=== PATIENT | female | born 1960 | race Caucasian/White ===

== ENCOUNTER 2023-08-22 07:55 | Inpatient (IN) | payer BC, MEDICAID ==
[~2023-08-22] VITALS: Ht 162.6 cm; Wt 67.6 kg
[~2023-08-22 07:55] MED LIST: IBUP1POW13
[2023-08-22 08:38] LABS: Basophils # (auto) 0 10 ^3/uL (0-0.2); Basophils % (auto) 0.1 % (0.0-2.0); Eosinophils # (auto) 0 10 ^3/uL (0-0.8); Hematocrit 34.2 % (36.0-46.0); Hemoglobin 11.1 g/dL (12.2-16.2); Lymphocytes # (auto) 1.2 10 ^3/uL (0.4-5.4); Lymphocytes % (auto) 4.9 % (10.0-50.0); Mean Corpuscular Hemoglobin 28.7 pg (28.0-32.0); Mean Corpuscular Hgb Conc. 32.5 g/dL (32.0-36.0); Mean Corpuscular Volume 88.2 fL (80.0-100.0); Monocytes % (auto) 4.2 % (0.0-12.0); Neutrophils % (auto) 90.8 % (37.0-80.0); Red Blood Cells 3.87 10^6/uL (4.0-5.20); Red Cell Distribution Width 15.4 % (11.8-14.3); White Blood Cell 24.2 10^3/uL (4.4-10.8)
[2023-08-22 08:52] LABS: Chloride 98 mmol/L (98-107); Potassium 3.8 mmol/L (3.5-5.1); Sodium 131 mmol/L (136-145)
[2023-08-22 08:53] LABS: Anion Gap 10 (5-15); Calcium 8.5 mg/dL (8.5-10.1); Carbon Dioxide 23 mmol/L (20-30)
[2023-08-22 08:58] LABS: BUN/Creatinine Ratio 23.1 (10.0-20.0); Blood Urea Nitrogen 15 mg/dL (9-23); Glucose 155 mg/dL (74-106)
[2023-08-22] MEDS: methylPREDNISolone SOD SUCC 125 MG/2 ML VL IV ONE (09:03)
[2023-08-22] MEDS: SODIUM CHLORIDE 0.9% 1,000 ML IV ONE ×2 (09:03→10:36)
[2023-08-22 09:14] VITALS: PULSE 75; RESP 19; O2SAT 93
[2023-08-22] MEDS: AZITHROMYCIN 500MG/ 250ML 250 ML IV ONE (10:35)
[2023-08-22 10:48] LABS: COVID19 ANTIGEN SOFIA FIA NEGATIVE (NEGATIVE); Rapid Influenza A Negative (Negative); Rapid Influenza B Negative (Negative)
[2023-08-22] MEDS ORDERED: DEXTROSE (50%) 50ML SYRG IV PRN (11:00)
[2023-08-22] MEDS ORDERED: DOCUSATE SOD 100 MG CAP PO PRN (11:00)
[2023-08-22] MEDS ORDERED: ONDANSETRON HCL 4 MG/2 ML VIAL IV PRN (11:00)
[2023-08-22] MEDS: IOHEXOL 350 MG/ML 100ML IJ ONE (11:02)
[2023-08-22 11:42] LABS: Base Excess -2.1 mmol/L (-2.0-2.0)
[2023-08-22] MEDS: SODIUM CHLORIDE 0.9% 1,000 ML IV SCH (12:42)
[2023-08-22] MEDS: ACCU-CHEK COMFORT CURVE STRIP VI SCH (12:42)
[2023-08-22] MEDS: InsuLIN REG 1unit/0.01ml Soln (100units/ml) SC SCH (12:45)
[2023-08-22] MEDS: NOREPINEPHRINE 8 MG/250ML KIT 250 ML IV SCH (15:19)
[2023-08-22] MEDS: ACETAMINOPHEN 325 MG TAB PO ONE (17:31)
[2023-08-22 19:45] VITALS: PULSE 92; RESP 22; O2SAT 94
[2023-08-22] MEDS ORDERED: VANCOMYCIN PER PHARMACY 0 MG IV SCH (21:30)
[2023-08-22] MEDS: VANCOMYCIN 1GM/200ML 200 ML IV ONE (21:53)
[2023-08-23] MEDS: HYDROcodone-ACET 5/325MG TAB PO ONE (01:10)
[2023-08-23 05:31] LABS: Hemoglobin 10.8 g/dL (12.2-16.2); Mean Corpuscular Hemoglobin 28.9 pg (28.0-32.0); Mean Corpuscular Hgb Conc. 32.6 g/dL (32.0-36.0); Mean Corpuscular Volume 88.7 fL (80.0-100.0); Red Blood Cells 3.72 10^6/uL (4.0-5.20); Red Cell Distribution Width 15.4 % (11.8-14.3); White Blood Cell 21.7 10^3/uL (4.4-10.8)
[2023-08-23 05:34] LABS: Albumin 3.4 g/dL (3.2-4.8); Alkaline Phosphatase 104 U/L (46-116); Anion Gap 9 (5-15); BUN/Creatinine Ratio 43.2 (10.0-20.0); Blood Urea Nitrogen 19 mg/dL (9-23); Calcium 8.3 mg/dL (8.7-10.4); Carbon Dioxide 21 mmol/L (20-30); Chloride 107 mmol/L (98-107); Glucose 141 mg/dL (74-106); Potassium 3.4 mmol/L (3.5-5.1); Sodium 137 mmol/L (136-145)
[2023-08-23 05:35] LABS: Aspartate Aminotransferase 10 U/L (13-40)
[2023-08-23 05:36] LABS: Bilirubin, Total 0.2 mg/dL (0.2-1.0)
[2023-08-23 05:46] LABS: Basophils % (manual) 0 (0.0-2.0); Blast Cells 0; Eosinophils % (manual) 0 (0-7); Promyelocytes % 0; Reactive Lymphocytes 0
[2023-08-23 05:49] LABS: Alanine Aminotransferase < 9 U/L (7-40)
[2023-08-23 09:03] LABS: Band Neutrophils % (manual) 11; Lymphocytes % (manual) 7 (10.0-50.0); Metamyelocytes % 2; Monocytes % (manual) 4 (0-12); Myelocytes % 1; Platelet Estimate Adequate
[2023-08-23] MEDS: cefTRIAXone 1GM/50ML D5W 50 ML IV SCH (09:17)
[2023-08-23] MEDS ORDERED: VANCOMYCIN 750mg/150ml 150 ML IV SCH (10:00)
[2023-08-23] MEDS: AZITHROMYCIN 500MG/ 250ML 250 ML IV SCH (10:42)
[2023-08-23] MEDS: ENOXAPARIN SOD 40 MG/0.4 ML SYRINGE SC SCH (10:42)
[2023-08-23 11:08] VITALS: BP 122/76; PULSE 88; RESP 19; TEMP 97.8; O2SAT 95
[2023-08-23] MEDS ORDERED: EMPA1TAB PO (11:30)
[2023-08-23] MEDS ORDERED: SITA100T7 PO (11:30)
[2023-08-23] MEDS ORDERED: AMLO1TAB21 PO (11:30)
[2023-08-23] MEDS ORDERED: ATOR40TA52 PO (11:30)
[2023-08-23] MEDS ORDERED: LISI40TA16 PO (11:30)
[2023-08-23] MEDS ORDERED: METF-372 PO (11:30)
[2023-08-23] MEDS ORDERED: PROP1TAB59 PO (11:30)
[2023-08-23] MEDS ORDERED: METH2.5T PO (11:30)
[2023-08-23 17:00] VITALS: BP 144/74; PULSE 95; RESP 18; TEMP 98.4; O2SAT 93
[2023-08-23 20:00] VITALS: PULSE 101
[2023-08-23 21:32] VITALS: BP 153/87; PULSE 100; RESP 16; TEMP 98.2; O2SAT 93
[2023-08-23] MEDS: MORPHINE SULFATE INJ 2 MG/ml SYRG IV PRN (21:47)
[2023-08-24] VITALS (7 sets, daily range): BP systolic 115–145; BP diastolic 68–86; PULSE 90–116; RESP 16–20; TEMP 98.5–99; O2SAT 93–98
[2023-08-24 05:27] LABS: Basophils # (auto) 0 10 ^3/uL (0-0.2); Basophils % (auto) 0.1 % (0.0-2.0); Eosinophils # (auto) 0.1 10 ^3/uL (0-0.8); Eosinophils % (auto) 0.3 % (0.0-7.0); Hematocrit 31.1 % (36.0-46.0); Hemoglobin 10.3 g/dL (12.2-16.2); Lymphocytes # (auto) 1.5 10 ^3/uL (0.4-5.4); Lymphocytes % (auto) 9.2 % (10.0-50.0); Mean Corpuscular Hemoglobin 29.3 pg (28.0-32.0); Mean Corpuscular Hgb Conc. 33.3 g/dL (32.0-36.0); Mean Corpuscular Volume 87.9 fL (80.0-100.0); Monocytes # (auto) 1.4 10 ^3/uL (0-1.3); Monocytes % (auto) 8.3 % (0.0-12.0); Neutrophils # (auto) 13.8 10 ^3/uL (1.6-8.6); Neutrophils % (auto) 82.1 % (37.0-80.0); Nucleated Red Blood Cells % 0.2 %; Red Blood Cells 3.54 10^6/uL (4.0-5.20); Red Cell Distribution Width 15.6 % (11.8-14.3); White Blood Cell 16.8 10^3/uL (4.4-10.8)
[2023-08-24 05:43] LABS: Alanine Aminotransferase 13 U/L (7-40); Albumin 3.3 g/dL (3.2-4.8); Alkaline Phosphatase 89 U/L (46-116); Anion Gap 7 (5-15); Aspartate Aminotransferase 17 U/L (13-40); BUN/Creatinine Ratio 35.1 (10.0-20.0); Bilirubin, Total 0.3 mg/dL (0.2-1.0); Blood Urea Nitrogen 13 mg/dL (9-23); Calcium 8.4 mg/dL (8.5-10.1); Carbon Dioxide 24 mmol/L (20-30); Chloride 106 mmol/L (98-107); Glucose 121 mg/dL (74-106); Potassium 3.3 mmol/L (3.5-5.1); Sodium 137 mmol/L (136-145); Total Protein 5.5 g/dL (5.7-8.2)
[2023-08-24] MEDS: POTASSIUM EFFERVESENT TAB 25 MEQ PO ONE (09:40)
[2023-08-25 05:09] VITALS: BP 125/84; PULSE 104; RESP 18; TEMP 99.7; O2SAT 93
[2023-08-25 07:28] LABS: Alanine Aminotransferase 10 U/L (7-40); Albumin 3.3 g/dL (3.2-4.8); Alkaline Phosphatase 85 U/L (46-116); Anion Gap 6 (5-15); BUN/Creatinine Ratio 15.8 (10.0-20.0); Blood Urea Nitrogen 6 mg/dL (9-23); Calcium 8.6 mg/dL (8.5-10.1); Carbon Dioxide 28 mmol/L (20-30); Chloride 104 mmol/L (98-107); Glucose 147 mg/dL (74-106); Potassium 3.3 mmol/L (3.5-5.1); Sodium 138 mmol/L (136-145)
[2023-08-25 07:29] LABS: Aspartate Aminotransferase 14 U/L (13-40); Bilirubin, Total 0.4 mg/dL (0.2-1.0); Total Protein 5.7 g/dL (5.7-8.2)
[2023-08-25 07:34] LABS: Hematocrit 33.9 % (36.0-46.0); Mean Corpuscular Hemoglobin 28.5 pg (28.0-32.0); Mean Corpuscular Hgb Conc. 32.3 g/dL (32.0-36.0); Mean Corpuscular Volume 88.2 fL (80.0-100.0); Red Blood Cells 3.85 10^6/uL (4.0-5.20); Red Cell Distribution Width 15.9 % (11.8-14.3); White Blood Cell 13.1 10^3/uL (4.4-10.8)
[2023-08-25 07:35] LABS: Basophils % (manual) 0 (0.0-2.0); Blast Cells 0; Eosinophils % (manual) 0 (0-7); Metamyelocytes % 0; Myelocytes % 0; Promyelocytes % 0; Reactive Lymphocytes 0
[2023-08-25 08:00] VITALS: PULSE 103
[2023-08-25 08:24] LABS: Band Neutrophils % (manual) 2; Lymphocytes % (manual) 15 (10.0-50.0); Monocytes % (manual) 8 (0-12); Platelet Estimate Increased; RBC Morphology Normal
[2023-08-25] MEDS: POTASSIUM EFFERVESENT TAB 25 MEQ PO ONE (08:27)
[2023-08-25 09:12] VITALS: BP 143/71; PULSE 115; RESP 16; TEMP 98.2; O2SAT 93
[2023-08-25] MEDS ORDERED: AMOX500T86 PO (11:34)
[2023-08-25 12:37] VITALS: TEMP 36.8
== END 2023-08-25 13:11 | disposition home or self-care (01) | DRG 871 ==
LOC: ER 07:55 → TELE 10:57 → TELE-EAST 08-23 11:22
PROVIDERS: ADMIT Internal Medicine Pulmonary Disease; ATTEND Internal Medicine Pulmonary Disease
DX: A41.9 Sepsis, unspecified organism (principal); J18.9 Pneumonia, unspecified organism; J96.01 Acute respiratory failure with hypoxia; R65.21 Severe sepsis with septic shock; G93.1 Anoxic brain damage, not elsewhere classified; I10 Essential (primary) hypertension; Z20.822 Contact with and (suspected) exposure to COVID-19; E78.5 Hyperlipidemia, unspecified; F41.9 Anxiety disorder, unspecified; F32.A Depression, unspecified; M06.9 Rheumatoid arthritis, unspecified; E11.65 Type 2 diabetes mellitus with hyperglycemia; B19.20 Unspecified viral hepatitis C without hepatic coma; I95.9 Hypotension, unspecified; S00.93XA Contusion of unspecified part of head, initial encounter; Z82.3 Family history of stroke; Z82.49 Family history of ischemic heart disease and other diseases of the circulatory system
CPT/HCPCS: 36415; 36600; 70450; 71045; 71275; 80048; 80053; 80202; 82805; 82962; 83036; 83605; 83880; 84484; 85007; 85025; 85027; 85379; 87040; 87070; 87077; 87186; 87205; 87426; 87493; 87804; 93005; 93306; 93886; 96361; 96365; 96375; 99291; G0378; J1815